=== PATIENT | female | born 1965 | race Caucasian/White ===

== ENCOUNTER 2016-08-08 06:10 | Emergency (ER) | payer MEDICARE, OTHER ==
[2016-08-08] MEDS ORDERED: HYDROcodone/Acetaminophen 10/325 mg Tablet ONE (07:03)
[2016-08-08] MEDS ORDERED: diphenhydrAMINE HCl 25 MG CAP ONE (07:03)
[2016-08-08] MEDS ORDERED: Naproxen 500 MG TAB ONE (07:03)
== END 2016-08-08 07:20 | disposition home or self-care (01) ==
LOC: MADERS 06:10
DX: T63.461A Toxic effect of venom of wasps, accidental (unintentional), initial encounter (principal); F32.9 Major depressive disorder, single episode, unspecified; Z79.899 Other long term (current) drug therapy
CPT/HCPCS: 96372; J1040

== ENCOUNTER 2018-05-23 15:22 | Outpatient (CLI) | payer MEDICARE ==
[2018-05-23 15:41] LABS: #Basophils 0.1 thou/uL (0.0-0.2); #Eosinphils 0.1 thou/uL (0.0-0.7); #Lymphocytes 1.9 thou/uL (1.20-3.40); #Monocytes 0.3 thou/uL (0.11-0.59); #Neutrophils 2.4 thou/uL (1.40-6.50); %Basophils 1.8 % (0.0-1.0); %Eosinophils 1.8 % (0.0-10.0); %Lymphocytes 39.7 % (21.0-51.0); %Neutrophils 50.7 % (42.0-75.0); Hemoglobin 12.5 g/dL (12.0-16.0); Mean Corpuscular HGB CONC 32.5 g/dL (32.0-36.0); Mean Corpuscular Hemoglobin 30.4 pg (27.0-31.0); Mean Corpuscular Volume 93.5 fL (78.0-98.0); Mean Platelet Volume 6.9 fL (7.4-10.4); Platelet Count 245 thou/uL (130-400); RBC Distribution Width 11.6 % (11.5-14.5); Red Blood Cell (RBC) Count 4.12 mill/uL (4.20-5.40); White Blood Cell (WBC) Count 4.7 thou/uL (4.8-10.8)
[2018-05-23 15:55] LABS: ALT (SGPT) 20 U/L (8-55); AST (SGOT) 18 U/L (5-34); Albumin 4.1 g/dL (3.5-5.0); Alkaline Phosphatase 60 U/L (40-150); Anion Gap 12 mmol/L (10-20); BUN (Urea Nitrogen) 17 mg/dL (9.8-20.1); Bilirubin, Total 0.5 mg/dL (0.2-1.2); Calc. Creatinine Clearance 0 mL/min (70-130); Calcium 8.9 mg/dL (7.8-10.44); Carbon Dioxide 27 mmol/L (22-29); Chloride 105 mmol/L (98-107); Estimated GFR-MDRD 67; Globulin 2.9 g/dL (2.4-3.5); Glucose 135 mg/dL (70-105); Potassium 4.3 mmol/L (3.5-5.1); Sodium 140 mmol/L (136-145)
== END 2018-05-23 15:23 | disposition home or self-care (01) ==
LOC: MADLAB 15:22
PROVIDERS: ATTEND Pain Medicine Pain Medicine
DX: Z01.818 Encounter for other preprocedural examination (principal)
CPT/HCPCS: 36415; 80053; 85025; 93005; 93010

== ENCOUNTER 2019-07-05 10:11 | Outpatient (CLI) | payer MEDICARE ==
--- NOTE | 2019-07-05 10:50 | RAD ---
Exam: 4 views of the temporomandibular joints HISTORY: Myalgia of the mastication muscles. Left TMJ arthralgia. FINDINGS: Visualized calvarium and paranasal sinuses are normal in appearance. No acute abnormality. Symmetric aeration of the visualized mastoid air cells. Visualized right and left mandibular condyles appear to be grossly unremarkable. Evaluation is limite d by overlying osseous structures. If there is concern, consider further interrogation with MRI. IMPRESSION: No radiographic abnormality. Consider MRI if clinically warranted. Transcribed Date/Time: 07/05/2019 12:00 PM
== END 2019-07-05 10:12 | disposition home or self-care (01) ==
LOC: MADRAD 10:11
DX: M79.11 Myalgia of mastication muscle (principal); M26.622 Arthralgia of left temporomandibular joint; M47.27 Other spondylosis with radiculopathy, lumbosacral region; G89.4 Chronic pain syndrome; Z79.899 Other long term (current) drug therapy
CPT/HCPCS: 70330

== ENCOUNTER 2020-02-14 20:32 | Emergency (ER) | payer MEDICARE ==
[2020-02-14] MEDS ORDERED: Ibuprofen 400 MG TAB ONE (20:54)
[2020-02-14] MEDS ORDERED: Acetaminophen 500 MG TAB ONE (20:54)
[2020-02-14] MEDS ORDERED: Boostrix 0.5 ML (Tdap) VIAL ONE (21:09)
--- NOTE | 2020-02-14 21:09 | RAD ---
Exam: XR Tib Fib Rt Leg 2 View HISTORY: Anterior right lower extremity pain and swelling after a fall. COMPARISON: None FINDINGS: No acute fracture, dislocation, or other acute osseous abnormality is identified. Mild subcutaneous soft tissue swelling is seen anterior to the mid diaphysis of the tibia as well as mild subcutaneous soft tissue swelling anterior to the knee. IMPRESSION: Mild subcutaneous soft tissue swelling without evidence of an acute osseous abnormality.
== END 2020-02-14 21:35 | disposition home or self-care (01) ==
LOC: MADERS 20:32
DX: S80.11XA Contusion of right lower leg, initial encounter (principal); F32.9 Major depressive disorder, single episode, unspecified; Z85.3 Personal history of malignant neoplasm of breast; Z79.1 Long term (current) use of non-steroidal anti-inflammatories (NSAID); Z79.899 Other long term (current) drug therapy; Y04.0XXA Assault by unarmed brawl or fight, initial encounter
CPT/HCPCS: 90471; 90715

== ENCOUNTER 2020-04-28 14:55 | Emergency (ER) | payer MEDICARE ==
[2020-04-28] MEDS ORDERED: Tetracaine 0.5% PF 4 ML BOT ONE (15:11)
[2020-04-28] MEDS ORDERED: Fluorescein Opthalmic Strip ONE (15:11)
== END 2020-04-28 15:42 | disposition home or self-care (01) ==
LOC: MADERS 14:55
DX: S05.12XA Contusion of eyeball and orbital tissues, left eye, initial encounter (principal); S05.11XA Contusion of eyeball and orbital tissues, right eye, initial encounter; Z85.3 Personal history of malignant neoplasm of breast; Z79.1 Long term (current) use of non-steroidal anti-inflammatories (NSAID); Z79.899 Other long term (current) drug therapy; W34.09XA Accidental discharge from other specified firearms, initial encounter

== ENCOUNTER 2021-01-09 10:09 | Outpatient (CLI) | payer MEDICARE | END 2021-01-09 10:10 | disposition home or self-care (01) | LOC: MADRAD 10:09 | PROVIDERS: ATTEND Family Medicine | DX: S99.921A Unspecified injury of right foot, initial encounter (principal); M79.89 Other specified soft tissue disorders; M79.674 Pain in right toe(s) ==

== ENCOUNTER 2021-09-16 18:43 | Emergency (ER) | payer MEDICARE ==
[2021-09-16] MEDS ORDERED: Boostrix 0.5 ML (Tdap) VIAL ONE (19:05)
[2021-09-16] MEDS ORDERED: Ketorolac Tromethamine 30 MG/ML VIAL ONE (20:49)
== END 2021-09-16 21:25 | disposition home or self-care (01) ==
LOC: MADERS 18:43
DX: S62.647A Nondisplaced fracture of proximal phalanx of left little finger, initial encounter for closed fracture (principal); W20.8XXA Other cause of strike by thrown, projected or falling object, initial encounter; Z23 Encounter for immunization; Z79.899 Other long term (current) drug therapy
CPT/HCPCS: 29130; 90471; 90715; 96372; J1885

== ENCOUNTER 2022-05-01 14:31 | Emergency (ER) | payer MEDICARE ==
[2022-05-01] MEDS ORDERED: Ondansetron ODT 4 MG TAB ONE (15:25)
[2022-05-01] MEDS ORDERED: Dicyclomine 10 MG CAP ONE (15:25)
== END 2022-05-01 16:11 | disposition home or self-care (01) ==
LOC: MADERS 14:31
DX: R19.7 Diarrhea, unspecified (principal); R10.30 Lower abdominal pain, unspecified; M79.10 Myalgia, unspecified site; M06.9 Rheumatoid arthritis, unspecified; Z20.822 Contact with and (suspected) exposure to COVID-19; Z85.3 Personal history of malignant neoplasm of breast; Z79.899 Other long term (current) drug therapy
CPT/HCPCS: 87804; 99284; Q0162; U0003; U0005

== ENCOUNTER 2023-01-18 14:33 | Outpatient (CLI) | payer MEDICARE | END 2023-01-18 14:34 | disposition home or self-care (01) | LOC: MADRAD 14:33 | PROVIDERS: ATTEND Pain Medicine Pain Medicine | DX: M25.552 Pain in left hip (principal) ==

== ENCOUNTER 2023-01-21 18:30 | Emergency (ER) | payer OTHER, MEDICARE ==
[2023-01-21] MEDS ORDERED: Ibuprofen 600 MG TAB ONE (19:24)
== END 2023-01-21 19:53 | disposition home or self-care (01) ==
LOC: MADERS 18:30
DX: S82.831A Other fracture of upper and lower end of right fibula, initial encounter for closed fracture (principal); X50.1XXA Overexertion from prolonged static or awkward postures, initial encounter; Y93.89 Activity, other specified; Y92.89 Other specified places as the place of occurrence of the external cause; Z79.899 Other long term (current) drug therapy
CPT/HCPCS: 29515

== ENCOUNTER 2023-06-10 19:48 | Emergency (ER) | payer MEDICARE ==
[2023-06-10] MEDS ORDERED: Benzonatate 100 MG CAP ONE (22:08)
[2023-06-12 10:57] LABS: SARS-CoV-2 N1 Negative; SARS-CoV-2 N2 Negative; SARS-CoV-2 RNAse P1 Positive; SARS-CoV-2 RNAse P2 Positive
== END 2023-06-10 22:23 | disposition home or self-care (01) ==
LOC: MADERS 19:48
DX: J06.9 Acute upper respiratory infection, unspecified (principal); B97.89 Other viral agents as the cause of diseases classified elsewhere
CPT/HCPCS: 71046; 87635; 87804; 99283

== ENCOUNTER 2023-12-17 09:40 | Emergency (ER) | payer MEDICARE | END 2023-12-17 09:57 | disposition home or self-care (01) | LOC: MADERS 09:40 | DX: J06.9 Acute upper respiratory infection, unspecified (principal) | CPT/HCPCS: 99283 ==

== ENCOUNTER 2024-05-23 10:45 | Outpatient (CLI) | payer MEDICARE, OTHER | END 2024-05-23 10:46 | disposition home or self-care (01) | LOC: MADEKG 10:45 | PROVIDERS: ATTEND Nurse Practitioner Family | DX: Z01.818 Encounter for other preprocedural examination (principal) | CPT/HCPCS: 71046; 93005; 93010 ==

== ENCOUNTER 2024-12-27 10:08 | Outpatient (CLI) | payer MEDICARE ==
[2024-12-27 10:19] LABS: #Basophils 0.1 thou/uL (0.0-0.2); #Eosinophils 0.4 thou/uL (0.0-0.7); #Lymphocytes 1.7 thou/uL (1.20-3.40); #Monocytes 0.3 thou/uL (0.11-0.59); #Neutrophils 2.1 thou/uL (1.40-6.50); %Basophils 2.4 % (0.0-1.0); %Eosinophils 8.0 % (0.0-10.0); %Lymphocytes 36.4 % (21.0-51.0); %Monocytes 7.1 % (0.0-10.0); %Neutrophils 46.1 % (42.0-75.0); Hematocrit 36.6 % (36.0-47.0); Hemoglobin 11.9 g/dL (12.0-16.0); Mean Corpuscular Hemoglobin 31.6 pg (27.0-31.0); Mean Corpuscular Volume 96.9 fl (78.0-98.0); Platelet Count 348 10x3/uL (130-400); Red Blood Cell (RBC) Count 3.78 mill/uL (4.20-5.40); White Blood Cell (WBC) Count 4.6 10x3/uL (4.8-10.8)
[2024-12-27 10:36] LABS: ALT (SGPT) 18 U/L (Less than 34); AST (SGOT) 21 U/L (11-34); Albumin 3.9 g/dL (3.1-4.5); Alkaline Phosphatase 91 U/L (40-110); Anion Gap 15 mmol/L (10-20); BUN (Urea Nitrogen) 10 mg/dL (9.8-20.1); Bilirubin, Total 0.2 mg/dL (0.3-1.2); Calc. Creatinine Clearance 0 mL/min (70-130); Calcium 8.5 mg/dL (7.8-10.44); Carbon Dioxide 24 mmol/L (23-31); Chloride 105 mmol/L (98-107); Globulin 2.8 g/dL (2.4-3.5); Glucose 135 mg/dL (80-115); Potassium 4.5 mmol/L (3.5-5.1); Sodium 139 mmol/L (136-145)
== END 2024-12-27 10:09 | disposition home or self-care (01) ==
LOC: MADLAB 10:08
PROVIDERS: ATTEND Internal Medicine Rheumatology
DX: M06.09 Rheumatoid arthritis without rheumatoid factor, multiple sites (principal); Z79.899 Other long term (current) drug therapy
CPT/HCPCS: 36415; 80053; 85025

== ENCOUNTER 2025-03-03 21:51 | Emergency (ER) | payer MEDICARE ==
[2025-03-03] MEDS ORDERED: Cephalexin 500 MG CAP ONE (22:22)
== END 2025-03-03 22:30 | disposition home or self-care (01) ==
LOC: MADERS 21:51
DX: R21 Rash and other nonspecific skin eruption (principal)
CPT/HCPCS: 99282